=== PATIENT | female | born 1990 | race African-American/Black ===

== ENCOUNTER 2022-03-03 10:39 | Outpatient (CLI) | payer BC, SELFPAY ==
--- NOTE | ~2022-03-03 | US_ITS ---
EXAMINATION: US OB <=14 wk fetus w TV DATE: 03/03/2022 11:38 INDICATION: First trimester dating TECHNIQUE: Real-time pelvic transabdominal and transvaginal ultrasound was performed. COMPARISON: None. FINDINGS: The uterus measures 13.3 x 4.9 x 7.9 cm. There is an intrauterine gestational sac. A yolk sac is identified. heart motion is identified measuring 161 beats per minute (bpm) by M-mode Do ppler. The crown rump length measures 2.5 cm , which correlates with an estimated gestational a ge of 9 weeks and 1 day(s) (+/-) 6 day(s). The right ovary measures 2.6 x 1.6 x 2.1 cm. The left ovary measures 2.8 x 1.6 x 1.9 cm. There is nor mal vascular flow in the ovaries. There is no free fluid in the pelvis. IMPRESSION: 1. Live intrauterine with an estimated gestational age of 9 weeks and 1 day(s) (+/-) 6 day( s) and an estimated delivery date of 10/05/2022. Reviewed, dictated and finalized at location F. IMPRESSION: 1. Live intrauterine with an estimated gestational age of 9 weeks and 1 day(s) (+/-) 6 day(s) and an estimated delivery date of 10/05/2022.
[2022-03-03 12:03] LABS: Basophils Percent Auto 0.3 % (0.2-1.2); Eosinophils Percent Auto 0.4 % (0-4.4); Hematocrit 37.2 % (37.0-47.0); Hemoglobin 12.1 g/dL (12.0-15.0); Immature Granulocyte Absolute 0.02 K/mm3 (0.00-0.031); Immature Granulocyte Percent A 0.3 % (0-0.5); Lymphocytes Absolute Auto 1.74 K/mm3 (0.9-3.2); Lymphocytes Percent Auto 25.4 % (18.3-44.2); Mean Corpuscular HGB Conc 32.5 g/dl (32-36); Mean Corpuscular Hemoglobin 28.2 pg (26-34); Mean Corpuscular Volume 86.7 fl (80-100); Mean Platelet Volume 9.1 fl (7.4-10.4); Monocytes Absolute Auto 0.5 K/mm3 (0.1-0.6); Monocytes Percent Auto 6.6 % (2.6-8.5); Neutrophils Absolute Auto 4.6 K/mm3 (1.3-6.7); Platelet Count Result 250 k/mm3 (150-375); Red Blood Count 4.29 M/mm3 (4.2-5.4); Red Cell Distribution Width 12.9 % (11.5-14.5); White Blood Count 6.9 K/mm3 (4.5-10.0)
[2022-03-03 12:53] LABS: Hepatitis B Surface Antigen Negative (Negative); Rubella IgG Antibody 9.2 IU/ML
[2022-03-03 12:55] LABS: HIV 1/2 Ab P24 Ag Result Negative (Negative)
[2022-03-04 12:22] LABS: Rapid Plasma Reagin Non-Reactive (NonReactive)
[2022-03-08 10:07] LABS: Hematocrit 37.5 % (35.0-45.0); Hemoglobin 12.2 g/dL (11.7-15.5); MCH 27.9 pg (27.0-33.0); MCV 85.6 fL (80.0-100.0); Red Blood Cell Count 4.38 Mill/uL (3.80-5.10)
== END 2022-03-03 10:40 | disposition home or self-care (01) ==
LOC: ANHIMG 10:42
PROVIDERS: PCP Internal Medicine; Visit Provider Obstetrics & Gynecology
DX: Z34.91 Encounter for supervision of normal pregnancy, unspecified, first trimester (principal); Z3A.09 9 weeks gestation of pregnancy
CPT/HCPCS: 36415; 76801; 76817; 83021; 84702; 85025; 86592; 86644; 86703; 86747; 86762; 86787; 86850; 86900; 86901; 87086; 87340; G0432

== ENCOUNTER 2022-09-22 17:05 | Observation (INO) | payer BC, SELFPAY ==
[2022-09-22] VITALS (8 sets, daily range): BP systolic 113–126; BP diastolic 74–81; PULSE 82–105; TEMP 36.5; BMI 35.6
--- NOTE | 2022-09-22 18:15 | OBADM ---
This patient, Kalpana Sanon, admitted to the OB room Nursery 1st Floor [address] for observation. Patient/family oriented to hospital policies and general routines including ID bracelet, bed and alarms, visiting hours, pain management, procedures, bathroom and other care routines, personal items, smoking policy, room service/diet, and visiting hours. Patient/Family are encouraged to report perceived risks to care and to ask questions if they do not understand what they are told or what they should do.
--- NOTE | 2022-09-22 18:18 | PC.NURSE ---
1744- Dr. Ricks called regarding patient status, cervical exam, and tracing. Ordered to give IV tylenol and fluids.
[2022-09-22] MEDS: LACTATED RINGERS 1,000 ML 999 ML IV CONT (18:33)
--- NOTE | 2022-09-23 12:54 | PM.OBTRLD ---
OB - Triage/Final Diagnosis Visit Information Date of evaluation: 09/22/22 Reason for evaluation: threatened labor Comments/Additional reasons for admission: I have assessed the risk for this patient, Kalpana Sanon, and determined that she would benefit from observation care. Evaluation Vital signs: Vital Signs - 24 hr 09/22/22 18:16 09/22/22 17:46 09/22/22 18:31 Temperature 97.7 F Pulse Rate 92 99 Blood Pressure 122/80 120/74 09/22/22 18:46 09/22/22 19:01 09/22/22 19:16 Temperature Pulse Rate 92 82 94 Blood Pressure 126/81 115/75 113/79 09/22/22 19:31 09/22/22 19:46 Temperature Pulse Rate 97 105 H Blood Pressure 114/79 117/77
== END 2022-09-22 20:04 | disposition home or self-care (01) ==
LOC: ANHNUR1 18:17 → ANHLDR 20:00
PROVIDERS: Admitting Provider Student in an Organized Health Care Education/Training Program; Visit Provider Student in an Organized Health Care Education/Training Program
DX: O47.1 False labor at or after 37 completed weeks of gestation (principal); Z3A.38 38 weeks gestation of pregnancy
CPT/HCPCS: 96374; G0378; G0379; J0131; J7120

== ENCOUNTER 2022-09-24 11:48 | Outpatient (CLI) | payer BC, SELFPAY ==
[2022-09-24 12:10] LABS: Hematocrit 30.1 % (37.0-47.0); Hemoglobin 9.7 g/dL (12.0-15.0); Mean Corpuscular HGB Conc 32.2 g/dl (32-36); Mean Corpuscular Hemoglobin 24.9 pg (26-34); Mean Corpuscular Volume 77.2 fl (80-100); Mean Platelet Volume 9.9 fl (7.4-10.4); Platelet Count Result 250 k/mm3 (150-375)
[2022-09-26 06:43] LABS: Rapid Plasma Reagin Non-Reactive (NonReactive)
== END 2022-09-24 11:49 | disposition home or self-care (01) ==
PROVIDERS: Visit Provider Obstetrics & Gynecology
DX: Z34.93 Encounter for supervision of normal pregnancy, unspecified, third trimester (principal); Z3A.00 Weeks of gestation of pregnancy not specified
CPT/HCPCS: 36415; 85027; 86592; 86850; 86900; 86901

== ENCOUNTER 2022-09-26 09:14 | Inpatient (IN) | payer BC, SELFPAY ==
--- NOTE | 2022-09-20 15:52 | PC.NURSE ---
Verified with OR schedule and patient--C/S on 09/26/22 at 1200 Patient given requisition for lab draw on 09/24/22
[2022-09-26] VITALS (57 sets, daily range): BP systolic 87–128; BP diastolic 37–95; PULSE 59–160; RESP 13–20; TEMP 36.1–36.8; O2SAT 97–100; BMI 34.4
[2022-09-26] MEDS: LACTATED RINGERS 1,000 ML 125 ML IV CONT (09:57)
--- NOTE | 2022-09-26 10:15 | WPDHPUPDATE1 ---
History and Physical Update Update Date/Time: 09/26/22 10:15 History and Physical has been reviewed, including an updated exam of the patient. There are NO changes in the patient's condition. Risks, benefits, and alternatives have been discussed and questions answered. Patient agrees to proceed with procedure.
--- NOTE | 2022-09-26 10:16 | PM.IMHP ---
H&P: HPI History of Present Illness Date/Time: 09/26/22 10:16 32-year-old female presents for repeat delivery. She has had 2 prior deliveries through midline incision. records are on the chart and no significant abnormalities or concerns throughout this . We have discussed tubal ligation and she declines. Chief Complaint: Review of Systems Review of Systems: All systems reviewed & are unremarkable except as noted in HPI and below PMFSH Past Medical History Medical History Asthma Suppression of menstruation Threatened 2019 Surgical History Surgical History Delivery by section (08/15/08) primary c/s Delivery by section (02/03/12) rpt c/s History of gynecological procedure (03/30/17) Laparoscopic adhesiolysis; left salpingectomy / left ectopic ; adhesions- ectopic Hx of cholecystectomy (~11/06/12) Family History Family History Mother Cervical cancer Diabetes mellitus Grandparent Diabetes mellitus maternal grandfather Acute myocardial infarction Social History Social History Smoking status: Current every day smoker Tobacco type: cigarettes Alcohol intake: former Drinks per week: 3 Substance use: current Substance use type: does not use Last use: 08/2022 Additional living arrangements comments: spouse Additional occupation/education comments: DIRECTOR OF MUSIC Gender identity (if verbalized by the patient): Female Sexual Orientation (if Verbalized by the Patient): Straight or Heterosexual Spiritual care concerns: No Meds Home Medications and Allergies Home Medications Medication Instructions Recorded Confirmed Type vitamins-iron fumarate 65 1 tablet PO DAILY 02/22/22 09/19/22 History mg iron-folic acid 1 mg tablet ferrous sulfate 325 mg (65 mg 325 mg PO DAILY 08/17/22 09/19/22 History iron) tablet Allergies Allergy/AdvReac Type Severity Reaction Status Date / Time No Known Allergies Allergy Verified 09/20/22 15:39 Vital Signs Vital Signs - 24 hr 09/26/22 09:49 09/26/22 10:01 Pulse Rate 88 91 Blood Pressure 112/73 112/75 Exam Const: General: cooperative, healthy appearing and comfortable Resp: Effort & Inspection: normal respiratory effort Auscultation: clear to auscultation bilaterally Cardio: Rate: regular rate Rhythm: regular rhythm GI: Inspection: incision Auscultation: normal bowel sounds : External Female Exam: normal external appearance Bimanual exam- vagina & uterus: enlarged ( fundal height 39cm. heart tone 140.) Bimanual Exam- Adnexa, other: normal adnexae Assessment and Plan Assessment and plan (1) 39 weeks gestation of : Code(s): Z3A.39 - 39 weeks gestation of Status: Acute (2) History of section: Code(s): Z98.891 - History of uterine scar from previous surgery Status: Acute Assessment and Plan: states that she had significant amount discomfort with the midline incisions, discussed Pfannenstiel incision which she does desire. Also have offered sterilization procedure, she declines.
--- NOTE | 2022-09-26 10:16 | LDADM ---
This patient, Kalpana Sanon, was admitted to Labor/Delivery/Recovery 120 on 09/26/22 at 09:14. Plans for labor, pain management and were discussed with patient. Patient/family oriented to hospital policies and general routines including ID bracelet, bed and alarms, visiting hours, pain management, procedures, bathroom and other care routines, personal items, smoking policy, room service/diet and guest tray routines, infant security routines, and visiting hours. Patient/Family are encouraged to report perceived risks to care and to ask questions if they do not understand what they are told or what they should do. See OBIX for further documentation.
[2022-09-26 10:59] LABS: HIV 1/2 Ab P24 Ag Result Negative (Negative)
[2022-09-26] MEDS: ceFAZolin 2 GM/D5W 50 ML 2 GM/50 ML BAG IVPB (11:01)
--- NOTE | 2022-09-26 11:08 | WPDANESEPPF ---
Anes - Initial Pre Proc Eval Procedure: Operation Date: 09/26/22 12:00 Proposed Procedures p Repeat Section - Yonny Sapp MD Date/Time: 09/26/22 11:08 Surgeon: Yonny Sapp MD Pre Op Diagnosis: Prior /Preadmit Patient Data Age: 32 Gender: F Height: 1.52 m Weight: 80 kg Last Vital Signs Pulse 94 09/26/22 10:16 BP 114/87 09/26/22 10:16 Allergies Allergy/AdvReac Type Severity Reaction Status Date / Time No Known Allergies Allergy Verified 09/20/22 15:39 Home Medications Medication Instructions Recorded Confirmed Type vitamins-iron fumarate 65 1 tablet PO DAILY 02/22/22 09/19/22 History mg iron-folic acid 1 mg tablet ferrous sulfate 325 mg (65 mg 325 mg PO DAILY 08/17/22 09/19/22 History iron) tablet Laboratory Tests 09/26/22 09/26/22 09:44 10:56 Urine Opiates Screen Pending Urine Methadone Screen Pending Ur Barbiturates Screen Pending Ur Phencyclidine Scrn Pending Ur Amphetamine Screen Pending U Benzodiazepines Scrn Pending Urine Cocaine Screen Pending U Cannabinoids Screen Pending HIV 1&2 Ab/P24 Ag 4thGn Negative (Negative) Patient hx anesthesia problems: none Family hx anesthesia problems: none Results Review: All pre-operative results and documents have been reviewed as part of the pre-operative evaluation. [facility] Past Medical History Medical History Asthma Suppression of menstruation Threatened 2019 Surgical History Surgical History Delivery by section (08/15/08) primary c/s Delivery by section (02/03/12) rpt c/s History of gynecological procedure (03/30/17) Laparoscopic adhesiolysis; left salpingectomy / left ectopic ; adhesions- ectopic Hx of cholecystectomy (~11/06/12) Family History Family History Mother Cervical cancer Diabetes mellitus Grandparent Diabetes mellitus maternal grandfather Acute myocardial infarction Social History Social History Smoking packs per day: 0.5 Smoking cigarettes per day: 10.0 Smoking status: Current every day smoker Tobacco type: cigarettes Second hand tobacco smoke exposure: Yes Alcohol intake: former Drinks per week: 3 Substance use: current Substance use type: does not use Last use: 08/2022 Lack of Transportation: No Lack of Food: Never True Current Housing: I Have Housing Concerned About Future Housing: No Difficulty Paying Gas/Electric Bills: No Difficulty Paying for Meds: No Currently Unemployed: No Education: High School Diploma/GED Difficulty w/ Childcare or Family Care: No Additional living arrangements comments: spouse Additional occupation/education comments: [employer] Gender identity (if verbalized by the patient): Female Sexual Orientation (if Verbalized by the Patient): Straight or Heterosexual Spiritual care concerns: No Anes - Eval Final PreProcedure Day of Procedure 09/26/22 11:08 Patient weight: normal Heart: regular rate and rhythm Lungs: clear to auscultation Airway: Mallampati scale class II Neurological: alert and oriented Last oral intake: >/= 8 hours ASA classification: II Emergent: no Anesthetic plan: proceed Anesthesia type and monitoring: general (back up), regional spinal and standard monitoring Results Review: All pre-operative results and documents have been reviewed as part of the pre-operative evaluation. Informed Consent: The patient's anesthetic plan and its attendant risks and benefits were discussed with the patient/family/POA. Questions were solicited and answers provided to the satisfaction of the patient/family/POA.
[2022-09-26 11:24] LABS: Amphetamine Screen Urine Negative (Negative); Barbiturate Screen Urine Negative (Negative); Benzodiazepines Screen Urine Negative (Negative); Cannabinoid Screen Urine Positive (Negative); Cocaine Screen Urine Negative (Negative); Methadone Screen Urine Negative (Negative); Opiate Screen Urine Negative (Negative); Phencyclidine Screen Urine Negative (Negative)
--- NOTE | 2022-09-26 11:52 | PM.OBPRVD ---
OB - Delivery Note Procedure Procedure: Procedures Operation Date: 09/26/22 12:00 Actual Procedure Side Surgeon p Section Yonny Sapp MD Events: Previous Delivery Induction method: None Delivery monitor: External FHT and External Uterine Route of delivery: Specimen: No Quantitative Blood Loss (ml): 195 Anesthesia type: Spinal Disposition: Floor Complications: None Narrative: patient prepped draped usual manner this procedure. Pfannenstiel skin incision was made and carried down to the. Fascia was extended bilaterally the length skin incision. Superiorly and inferiorly dissected away from the rectus muscles the peritoneum was readily entered. Bladder flap was difficulty in the uterus scored with clear fluid noted. Vertex delivered without difficulty nuchal cord was noted and readily reduced. Rest baby was delivered cord clamped cut and placenta was removed manually. Uterus cleared of clots and membranes and then a approximated using 0 Monocryl in a running interlocking manner with good approximation hemostasis noted. Uterus was returned to the abdomen skin incision again noted to be hemostatic and the subfascial tissue was all hemostatic. Fascia was approximated 0 Vicryl left angle and the right angle to the with good approximation noted. Subcutaneous tissue was approximated using 0 plain suture and shae were then used to approximate skin edges. Patient was sent to recovery in stable condition. [place] Baby Weeks of gestation at delivery: 39 gender: Male Weight (pounds): 6 Weight (ounces): 5 presentation: vertex Placenta delivery description: Manual Removal Cord Vessel Description: 3 Vessels and Nuchal Cord score one minute: 8 score five minutes: 9 AMG Delivery Billing Delivery Delivery: Delivery Charge
[2022-09-26] MEDS: OXYTOCIN 30 UNITS/NS 500 ML 30 UNITS/500 ML BAG 125 UNITS IV CONT (12:37)
[2022-09-26] MEDS: fentaNYL CITRATE INJ (*CRX) 100 MCG/2 ML VIAL 25 MCG IV PUSH ×3 (12:50→13:02)
[2022-09-26] MEDS: ONDANSETRON INJ 4 MG/2 ML VIAL IV PUSH (12:50)
[2022-09-26] MEDS: KETOROLAC 30 MG/ML VIAL (*BKC) IV PUSH (13:39)
[2022-09-26] MEDS: LORATADINE 10 MG TABLET PO (15:20)
--- NOTE | 2022-09-26 16:09 | OBPPTRN ---
1412 Patient transferred to post room #277 via stretcher. Support person present. Oriented to unit, room, information board, rooming in, admission packet and security measures. Patient verbalizes understanding.
[2022-09-26] MEDS: diphenhydrAMINE HCl INJ 50 MG/ML VIAL 12.5 MG IV PUSH ×2 (16:42→20:00)
[2022-09-26] MEDS: DEXTROSE 5%/0.45% SOD CHL 1,000 ML 125 ML IV CONT (16:44)
[2022-09-26] MEDS: IBUPROFEN 600 MG TABLET PO (19:03)
[2022-09-26] MEDS: POLYSACCHARIDE IRON COMPLEX 150 MG CAPSULE PO (19:04)
[2022-09-26] MEDS: DOCUSATE SODIUM 100 MG CAPSULE PO (19:04)
[2022-09-26] MEDS: HYDROcodone/acetaminophen (*CRX) 10-325 MG TABLET 1 TAB PO ×2 (19:05→22:40)
[2022-09-26] MEDS: KCL 20 MEQ/D5/0.45% SOD CHL 1,000 ML 125 ML IV CONT (22:44)
[2022-09-27] VITALS: BP 113/70; PULSE 90; RESP 16; TEMP 36.7
[2022-09-27 04:00] VITALS: BP 128/91; PULSE 80; RESP 18; TEMP 36.6
[2022-09-27] MEDS: IBUPROFEN 600 MG TABLET PO ×4 (04:10→22:55)
[2022-09-27] MEDS: diphenhydrAMINE HCl INJ 50 MG/ML VIAL 12.5 MG IV PUSH ×2 (04:11)
[2022-09-27] MEDS: HYDROcodone/acetaminophen (*CRX) 10-325 MG TABLET 1 TAB PO ×6 (04:11→22:55)
[2022-09-27 05:52] LABS: Basophils Percent Auto 0.2 % (0.2-1.2); Eosinophils Percent Auto 0.1 % (0-4.4); Hematocrit 28.5 % (37.0-47.0); Hemoglobin 9.1 g/dL (12.0-15.0); Immature Granulocyte Absolute 0.06 K/mm3 (0.00-0.031); Immature Granulocyte Percent A 0.7 % (0-0.5); Lymphocytes Absolute Auto 1.51 K/mm3 (0.9-3.2); Mean Corpuscular HGB Conc 31.9 g/dl (32-36); Mean Corpuscular Hemoglobin 24.7 pg (26-34); Mean Corpuscular Volume 77.2 fl (80-100); Monocytes Absolute Auto 0.7 K/mm3 (0.1-0.6); Monocytes Percent Auto 8.6 % (2.6-8.5); Neutrophils Absolute Auto 6.1 K/mm3 (1.3-6.7); Neutrophils Percent Auto 72.4 % (45.5-73.1); Platelet Count Result 233 k/mm3 (150-375); Red Blood Count 3.69 M/mm3 (4.2-5.4); Red Cell Distribution Width 15.2 % (11.5-14.5); White Blood Count 8.4 K/mm3 (4.5-10.0)
[2022-09-27 07:35] VITALS: BP 103/73; PULSE 85; RESP 16; TEMP 37; O2SAT 96
[2022-09-27] MEDS: MULTIVIT/MIN/PREN/FOL AC/IRON TABLET 1 TAB PO (08:58)
[2022-09-27] MEDS: DOCUSATE SODIUM 100 MG CAPSULE PO ×2 (08:58→16:27)
[2022-09-27] MEDS: POLYSACCHARIDE IRON COMPLEX 150 MG CAPSULE PO ×2 (08:58→16:27)
--- NOTE | 2022-09-27 10:59 | PC.NURSE ---
[id number] Introductions were made, then consulted with patient to assess needs related to . Mother led the conversation with her?plans to feed?her infant and the?experience so far. Resources provided for inpatient and outpatient services using mom/baby guide. Mother voiced understanding of information and requests assistance. Mother works well with her infant with encouragement. Encouraged understanding of the benefits of skin to skin (unwrapping and placing vertically on her chest), responsive feeding and how to watch for early feeding signs, frequency of feeding on demand about every 8-12 times in 24 hours (every 2-3 hours), milk production, duration of feeding, signs of adequate intake/output and how to record on the feeding sheet. Reviewed positioning and ear, shoulder, hip alignment, supporting the breast, asymmetrical latch (off-center), and leading with the chin with a big open side gape. latched optimally to the left breast in football position. Education given to mother of how to visualize suck/swallow ratios and drinking at the breast. Infant was able to maintain latch without discomfort to mother. Nipple care reviewed with optimal latch and good positioning. Resources used to facilitate learning were used with the tool/mom and baby guide. Discussed the recommendation is not to use cannabis while and the risks and benefits of breast milk for her infant. Mother voiced understanding of responsive feedings, stimulating skin to skin with massage touch, talking to infant to encourage if it has been 2 -3 hours since the start of the last , to call if does not latch or there is discomfort with . Reported to the primary RN.
--- NOTE | 2022-09-27 11:30 | WPDANLDNPN2 ---
Anes-Prog Note L&D-Neuraxial Date/Time: 09/27/22 11:30 Patient feedback: Patient satisfied with post-operative pain management.
--- NOTE | 2022-09-27 11:30 | WPDANLDPN2 ---
Anes-Prog Note L&D Date/Time: 09/27/22 11:30 Neuro status: Neuro function grossly intact. Vital Signs: Last Vital Signs Temp 37.0 C 09/27/22 07:35 Pulse 85 09/27/22 07:35 Resp 16 09/27/22 07:35 BP 103/73 09/27/22 07:35 Pulse Ox 96 09/27/22 07:35 O2 Del Method Room Air 09/27/22 08:00 Pain score (VAS): 0 I/O: Intake & Output 09/26/22 09/27/22 09/27/22 23:59 07:59 15:59 Intake Total 1480 1000 Output Total 100 1100 300 Balance 1380 -100 -300 Patient feedback: Patient satisfied with anesthetic care.
[2022-09-27] MEDS: diphenhydrAMINE HCl CAP 25 MG CAPSULE PO ×2 (12:33→16:33)
[2022-09-27] MEDS: TETANUS,DIPHTHERIA,AC PERTUSSIS ADULT (0.5 ML) BOOSTRIX IM (12:34)
[2022-09-27] MEDS: SIMETHICONE 80 MG TAB.CHEW PO ×2 (14:27→16:27)
[2022-09-27 18:50] VITALS: BP 119/83; PULSE 91; RESP 16; TEMP 36.6
[2022-09-28] MEDS: HYDROcodone/acetaminophen (*CRX) 10-325 MG TABLET 1 TAB PO ×3 (02:17→09:52)
[2022-09-28] MEDS: IBUPROFEN 600 MG TABLET PO (05:25)
[2022-09-28 08:05] VITALS: BP 141/87; PULSE 82; RESP 18; TEMP 37.6; O2SAT 100
[2022-09-28] MEDS: MULTIVIT/MIN/PREN/FOL AC/IRON TABLET 1 TAB PO (09:52)
[2022-09-28] MEDS: DOCUSATE SODIUM 100 MG CAPSULE PO (09:52)
[2022-09-28] MEDS: POLYSACCHARIDE IRON COMPLEX 150 MG CAPSULE PO (09:52)
--- NOTE | 2022-09-28 11:18 | P.DS_ITS ---
DS: Admitting Diagnosis Discharge Date 09/28/2022 Admitting Diagnosis OB - DS: Summary OB Procedures : None OB Procedures Intrapartum: OB Procedures: : None Peripartum Data Procedures: Procedures Operation Date: 09/26/22 12:00 Actual Procedure Side Surgeon p Section Yonny Sapp MD Time Spent with Patient Time attestation: Total time spent providing and/or coordinating discharge services: Discharge Plan Discharge Discharging Clinician: Yonny Sapp Patient Disposition: Home, Self-Care Activity: as tolerated Diet: as tolerated Wound Care Instructions: incision open to air Discharge Instructions: office Monday for staple removal. Patient Instructions: Antibiotic Form Stand Alone Forms: General Discharge Information Follow-up/Referrals: Yonny Sapp MD [Physician] - 3 Weeks Discharge Medications: New hydrocodone-acetaminophen 5-325 mg Tablet 1 tablet PO Q4-6H PRN (Reason: Moderate Pain (4-6)) Qty: 30 0RF ibuprofen 600 mg Tablet 600 mg PO Q6H PRN (Reason: Cramping) Qty: 30 0RF Continued vit-iron fum-folic ac 65 mg iron- 1 mg tablet 1 tablet PO DAILY ferrous sulfate 325 mg (65 mg iron) tablet 325 mg PO DAILY Date of admission: 09/26/22 09:14 Primary Care Provider: PHYSICIAN,[employer]NALYST Admitting Provider: Yonny Sapp Attending physician on admission: Yonny Sapp Condition: Stable
[2022-09-30 11:39] VITALS: BP 143/79; PULSE 67; RESP 20; TEMP 36.9; O2SAT 100
== END 2022-09-28 12:33 | disposition home or self-care (01) | DRG 540 ==
LOC: ANHLDR 09:19 → ANHOB2 14:14
PROVIDERS: Admitting Provider Obstetrics & Gynecology; Visit Provider Obstetrics & Gynecology
PROC: 10D00Z1 Extraction of Products of Conception, Low, Open Approach (ICD-10-PCS; CPT 59514; principal; 2022-09-26 12:00)
DX: O34.219 Maternal care for unspecified type scar from previous cesarean delivery (principal); F17.210 Nicotine dependence, cigarettes, uncomplicated; O99.334 Smoking (tobacco) complicating childbirth; O69.81X0 Labor and delivery complicated by cord around neck, without compression, not applicable or unspecified; Z3A.39 39 weeks gestation of pregnancy; Z37.0 Single live birth; Z90.49 Acquired absence of other specified parts of digestive tract; Z23 Encounter for immunization
CPT/HCPCS: 36415; 80307; 85025; 86703; 90471; 90686; 90715; A9270; G0008; G0432; J0131; J0690; J1200; J1885; J2274; J2370; J2405; J2590; J3010; J3480; J7120